=== PATIENT | female | born 1980 | race African-American/Black ===

== ENCOUNTER 2017-07-25 00:07 | Inpatient (IN) | payer MEDICARE, MEDICAID ==
[~2017-07-25] VITALS: Ht 162.6 cm; Wt 67.6 kg
[2017-07-25] MEDS ORDERED: MORPHINE SULFATE 4 MG/ML CPJ (NOT FOR IM USE) IV STA (03:32)
[2017-07-25] MEDS ORDERED: SODIUM CHLORIDE 0.9% 1,000 ML IV ONE (03:32)
[2017-07-25] MEDS ORDERED: ONDANSETRON HCL 4MG/2ML VIAL IV STA (03:32)
[2017-07-25 03:51] LABS: CLARITY URINE CLOUDY (CLEAR); COLOR URINE YELLOW (YELLOW); GLUCOSE URINE NEGATIVE (NEGATIVE); KETONES URINE TRACE (NEGATIVE); LEUKOCYTE ESTERASE URINE 1+ (NEGATIVE); NITRITE URINE NEGATIVE (NEGATIVE); OCCULT BLOOD URINE 1+ (NEGATIVE); PROTEIN URINE TRACE (NEGATIVE); SPECIFIC GRAVITY URINE 1.021 (1.005-1.030); UROBILINOGEN URINE 0.2 E.U./dL (0.2-1.0)
[2017-07-25 03:58] LABS: BASOPHILS % 0.3 % (0.0-2.0); EOSINOPHILS % 0.1 % (0.0-5.0); HEMATOCRIT. 34.6 % (36.0-48.0); HEMOGLOBIN. 11.7 g/dL (12.0-16.0); LYMPHOCYTES % 16.5 % (20.0-50.0); MEAN CORPUSCULAR HEMOGLOBIN 32.4 pg (28.0-32.0); MEAN CORPUSCULAR VOLUME 95.7 fL (81.0-99.0); MEAN PLATELET VOLUME 7.8 fl (7.4-10.4); NEUTROPHILS % 79.1 % (40.0-76.0); PLATELET 309 x1000/uL (130-400); RED BLOOD CELL COUNT 3.62 mill/uL (4.2-5.4)
[2017-07-25 04:12] LABS: CARBON DIOXIDE 26 mEq/L (21-32); CHLORIDE 105 mEq/L (98-107)
[2017-07-25] MEDS ORDERED: MORPHINE SULFATE 2 MG/ML CPJ (NOT FOR IM USE) IV SCH (05:00)
[2017-07-25] MEDS ORDERED: CEFOXITIN SODIUM 1 G in DEXTROSE 5% WATER 50 ML IV SCH (05:15)
[2017-07-25] MEDS ORDERED: SODIUM CHLORIDE 0.9% 1,000 ML IV SCH (05:54)
[2017-07-25 08:30] VITALS: BP 105/60
[2017-07-25 09:00] VITALS: BP 105/60
[2017-07-25] MEDS ORDERED: MORPHINE SULFATE 4 MG/ML CPJ (NOT FOR IM USE) IV PRN (09:15)
[2017-07-25] MEDS ORDERED: MAGNESIUM/ALUMINUM HYDROXIDE/SIMETHICONE 30ML UDC PO PRN (09:15)
[2017-07-25] MEDS ORDERED: ACETAMINOPHEN 325MG TABLET PO PRN (09:15)
[2017-07-25] MEDS: DEXT 5%/0.45% NACL KCL 10MEQ/L 1,000 ML IV SCH ×2 (09:58→18:35)
[2017-07-25] MEDS: CEFTRIAXONE 1 G PREMIX 50 ML IV SCH (09:58)
[2017-07-25 12:00] VITALS: BP 128/68
[2017-07-25] MEDS ORDERED: FAMOTIDINE 20MG/2ML VIAL IV SCH (14:45)
[2017-07-25] MEDS ORDERED: LORAZEPAM 2MG/ML CPJ IV PRN (14:45)
[2017-07-25] MEDS: FAMOTIDINE 20MG/2ML VIAL IV SCH ×2 (15:28→22:42)
[2017-07-25 16:00] VITALS: BP 115/61
[2017-07-25] MEDS: MORPHINE SULFATE 4 MG/ML CPJ (NOT FOR IM USE) IV PRN ×2 (16:32→21:21)
[2017-07-25 20:00] VITALS: BP 105/64
[2017-07-26] VITALS: BP 109/71
[2017-07-26] MEDS: DEXT 5%/0.45% NACL KCL 10MEQ/L 1,000 ML IV SCH ×2 (02:30→12:56)
[2017-07-26] MEDS: MORPHINE SULFATE 4 MG/ML CPJ (NOT FOR IM USE) IV PRN ×2 (02:31→08:58)
[2017-07-26] MEDS: ONDANSETRON HCL 4MG/2ML VIAL IV PRN ×4 (02:42→22:42)
[2017-07-26 04:00] VITALS: BP 98/55
[2017-07-26 07:36] LABS: BASOPHILS % 0.4 % (0.0-2.0); HEMATOCRIT. 33.8 % (36.0-48.0); HEMOGLOBIN. 11.5 g/dL (12.0-16.0); LYMPHOCYTES % 36.9 % (20.0-50.0); MEAN CORPUSCULAR HEMOGLOBIN 32.6 pg (28.0-32.0); MEAN CORPUSCULAR VOLUME 95.8 fL (81.0-99.0); MEAN PLATELET VOLUME 8.3 fl (7.4-10.4); MONOCYTES % 7.3 % (2.0-8.0); NEUTROPHILS % 54.4 % (40.0-76.0); PLATELET 271 x1000/uL (130-400); RED BLOOD CELL COUNT 3.52 mill/uL (4.2-5.4)
[2017-07-26 08:00] VITALS: BP 106/76
[2017-07-26] MEDS: FAMOTIDINE 20MG/2ML VIAL IV SCH ×2 (08:48→21:07)
[2017-07-26] MEDS: CEFTRIAXONE 1 G PREMIX 50 ML IV SCH (09:01)
[2017-07-26 12:00] VITALS: BP 127/70
[2017-07-26] MEDS ORDERED: HYDROCODONE/ACETAMINOPHEN 5/325MG TABLET PO PRN (12:30)
[2017-07-26] MEDS ORDERED: ACETAMINOPHEN WITH CODEINE 300/30MG TABLET PO PRN (14:00)
[2017-07-26 16:00] VITALS: BP 104/61
[2017-07-26] MEDS: TRAMADOL 50MG TABLET PO PRN (18:14)
[2017-07-26] MEDS: DIPHENHYDRAMINE 50MG/ML VIAL IV PRN ×2 (18:20→22:42)
[2017-07-26 20:00] VITALS: BP 115/74
[2017-07-27] MEDS: ONDANSETRON HCL 4MG/2ML VIAL IV PRN ×2 (04:58→09:27)
[2017-07-27] MEDS: DIPHENHYDRAMINE 50MG/ML VIAL IV PRN (05:03)
[2017-07-27] MEDS: TRAMADOL 50MG TABLET PO PRN (05:12)
[2017-07-27 08:00] VITALS: BP 103/56
[2017-07-27] MEDS: FAMOTIDINE 20MG/2ML VIAL IV SCH (09:18)
[2017-07-27] MEDS: CEFTRIAXONE 1 G PREMIX 50 ML IV SCH (09:18)
[2017-07-27 12:00] VITALS: BP 108/71
[2017-07-27 14:54] VITALS: BP 108/71
[2017-07-27 16:00] VITALS: BP 101/61
== END 2017-07-27 18:50 | disposition home or self-care (01) | DRG 781 ==
LOC: ER 00:08 → 6EST 06:00 → ENRESERV 07:03
PROVIDERS: ADMIT Internal Medicine; ATTEND Internal Medicine
DX: O99.611 Diseases of the digestive system complicating pregnancy, first trimester (principal); R65.10 Systemic inflammatory response syndrome (SIRS) of non-infectious origin without acute organ dysfunction; K80.21 Calculus of gallbladder without cholecystitis with obstruction; O98.911 Unspecified maternal infectious and parasitic disease complicating pregnancy, first trimester; O26.611 Liver and biliary tract disorders in pregnancy, first trimester; O23.41 Unspecified infection of urinary tract in pregnancy, first trimester; F41.9 Anxiety disorder, unspecified; O99.341 Other mental disorders complicating pregnancy, first trimester; F12.90 Cannabis use, unspecified, uncomplicated; O99.321 Drug use complicating pregnancy, first trimester; Z3A.12 12 weeks gestation of pregnancy; Z80.0 Family history of malignant neoplasm of digestive organs; Z79.899 Other long term (current) drug therapy; O09.521 Supervision of elderly multigravida, first trimester
CPT/HCPCS: 36415; 74181; 76705; 76830; 76856; 80053; 80076; 81001; 81025; 83690; 85025; 85610; 86850; 86900; 96374; 96375; 99285; J0694; J0696; J1200; J2270; J2405; J3490; J7030; J7060

== ENCOUNTER 2022-11-26 11:41 | Emergency (ER) | payer MEDICARE, MEDICAID ==
[~2022-11-26] VITALS: Ht 172.7 cm; Wt 70.0 kg
[2022-11-26] MEDS ORDERED: SODIUM CHLORIDE 0.9% 1,000 ML IV ONE (12:00)
[2022-11-26 12:30] LABS: BASOPHILS % 0.4 % (0.0-2.0); EOSINOPHILS % 1.5 % (0.0-5.0); HEMATOCRIT. 31.6 % (36.0-48.0); HEMOGLOBIN. 10.8 g/dL (12.0-16.0); LYMPHOCYTES % 26.6 % (20.0-50.0); MEAN CORPUSCULAR HEMOGLOBIN 33.2 pg (28.0-32.0); MEAN CORPUSCULAR VOLUME 97.3 fL (81.0-99.0); MEAN PLATELET VOLUME 7.6 fl (7.4-10.4); MONOCYTES % 6.2 % (2.0-8.0); NEUTROPHILS % 65.3 % (40.0-76.0); PLATELET 285 x1000/uL (130-400); RED BLOOD CELL COUNT 3.25 mill/uL (4.2-5.4); RED CELL DISTRIBUTION WIDTH 13.8 % (11.6-14.6)
[2022-11-26] MEDS ORDERED: ACETAMINOPHEN 325MG TABLET PO ONE (12:30)
[2022-11-26 12:39] LABS: CHLORIDE 108 mEq/L (98-107)
[2022-11-26 13:03] LABS: B-HCG QUANTITATIVE 1520 mIU/mL (<3)
[2022-11-26 16:03] LABS: CLARITY URINE CLEAR (CLEAR); COLOR URINE YELLOW (YELLOW); KETONES URINE NEGATIVE (NEGATIVE); LEUKOCYTE ESTERASE URINE TRACE (NEGATIVE); NITRITE URINE NEGATIVE (NEGATIVE); OCCULT BLOOD URINE 3+ (NEGATIVE); PH URINE 7.5 (4.5-8.0); PROTEIN URINE NEGATIVE (NEGATIVE); SPECIFIC GRAVITY URINE 1.008 (1.005-1.030); UROBILINOGEN URINE 0.2 E.U./dL (0.2-1.0)
[2022-11-26] MEDS ORDERED: ACETAMINOPHEN WITH CODEINE 300/30MG TABLET PO ONE (16:15)
[2022-11-26 16:30] VITALS: BP 123/73
[2022-11-26] MEDS ORDERED: T3 PO (16:31)
[2022-11-26] MEDS ORDERED: TRAM50TA3 MT (22:53)
[2022-11-26] MEDS ORDERED: TOPUD PO (22:53)
== END 2022-11-26 16:53 | disposition home or self-care (01) ==
LOC: ER 11:41
DX: O36.4XX0 Maternal care for intrauterine death, not applicable or unspecified (principal); Z3A.08 8 weeks gestation of pregnancy
CPT/HCPCS: 36415; 76830; 76856; 80053; 81003; 84702; 85025; 86850; 86900; 86901; 96360; 99284; J7030

== ENCOUNTER 2022-11-26 18:19 | Emergency (ER) | payer OTHER, MEDICAID ==
[~2022-11-26] VITALS: Ht 157.5 cm; Wt 70.0 kg
[~2022-11-26 18:19] MED LIST: T3 PO
[2022-11-26] MEDS ORDERED: IBUPROFEN 400MG TABLET PO ONE (19:00)
[2022-11-26] MEDS ORDERED: HYDROCODONE/ACETAMINOPHEN 5/325MG TABLET PO ONE (19:00)
[2022-11-26] MEDS ORDERED: SODIUM CHLORIDE 0.9% 1,000 ML IV ONE (19:45)
[2022-11-26 19:55] LABS: BASOPHILS % 0.2 % (0.0-2.0); EOSINOPHILS % 0.7 % (0.0-5.0); HEMATOCRIT. 29.4 % (36.0-48.0); LYMPHOCYTES % 17.8 % (20.0-50.0); MEAN CORPUSCULAR HEMOGLOBIN 33.5 pg (28.0-32.0); MEAN CORPUSCULAR VOLUME 98.4 fL (81.0-99.0); MONOCYTES % 4.1 % (2.0-8.0); NEUTROPHILS % 77.2 % (40.0-76.0); PLATELET 276 x1000/uL (130-400); RED BLOOD CELL COUNT 2.99 mill/uL (4.2-5.4); RED CELL DISTRIBUTION WIDTH 13.9 % (11.6-14.6)
[2022-11-26] MEDS ORDERED: TRAMADOL 50MG TABLET PO ONE (20:15)
[2022-11-26] MEDS ORDERED: TRAM50TA3 MT (22:53)
[2022-11-26] MEDS ORDERED: TOPUD PO (22:53)
[2022-11-26 23:25] VITALS: BP 91/51
== END 2022-11-26 23:33 | disposition home or self-care (01) ==
LOC: ER 21:27
DX: O03.9 Complete or unspecified spontaneous abortion without complication (principal); Z3A.01 Less than 8 weeks gestation of pregnancy; F12.10 Cannabis abuse, uncomplicated; Z79.899 Other long term (current) drug therapy
CPT/HCPCS: 36415; 85025; 88305; 96360; 99283; J7030